=== PATIENT | male | born 1980 | race Caucasian/White ===

== ENCOUNTER 2017-04-25 00:58 | Emergency (ER) | payer OTHER ==
[2017-04-25 03:35] LABS: BASOPHIL % 0.3 % (0-2); PLATELET COUNT 203 x10^3mcL (130-400); RED CELL DISTRIBUTION WIDTH 13.5 % (11.5-14.5)
[2017-04-25 03:45] LABS: CALCIUM 8.3 mg/dL (8.5-10.1); CARBON DIOXIDE 27.3 mmol/L (21-32); CREATININE SERUM 1.5 mg/dL (0.7-1.3); POTASSIUM SERUM 4.2 mmol/L (3.5-5.1)
[2017-04-25 05:34] VITALS: BP 137/94
== END 2017-04-25 05:34 | disposition short-term general hospital (02) ==
LOC: ED 00:58
PROVIDERS: Emergency Medicine
DX: S02.609A Fracture of mandible, unspecified, initial encounter for closed fracture (principal); S02.31XA Fracture of orbital floor, right side, initial encounter for closed fracture; S02.0XXA Fracture of vault of skull, initial encounter for closed fracture; F10.129 Alcohol abuse with intoxication, unspecified; Y04.2XXA Assault by strike against or bumped into by another person, initial encounter; Y93.89 Activity, other specified; Y99.8 Other external cause status; Y92.89 Other specified places as the place of occurrence of the external cause
CPT/HCPCS: 90715; G0480; J3490

== ENCOUNTER 2019-10-25 18:03 | Emergency (ER) | payer OTHER | END 2019-10-25 19:00 | disposition other institution (70) | LOC: ED 18:03 | DX: Z02.89 Encounter for other administrative examinations (principal) ==

== ENCOUNTER 2019-10-25 18:03 | Emergency (ER) | payer OTHER ==
[~2019-10-25] VITALS: Ht 177.8 cm; Wt 111.1 kg
[2019-10-25 18:05] VITALS: Ht 177.8 cm; Wt 111.1 kg
[2019-10-25 19:00] VITALS: BP 128/78
== END 2019-10-25 19:00 | disposition other institution (70) ==
LOC: ED 18:03
DX: H93.11 Tinnitus, right ear (principal); F15.10 Other stimulant abuse, uncomplicated

== ENCOUNTER 2020-04-12 15:07 | Emergency (ER) | payer OTHER ==
[~2020-04-12] VITALS: Ht 180.3 cm; Wt 93.0 kg
[2020-04-12 15:20] VITALS: Ht 180.3 cm; Wt 93.0 kg
[2020-04-13 01:30] VITALS: BP 108/76
== END 2020-04-13 01:30 | disposition home or self-care (01) ==
LOC: ED 15:07
DX: F19.10 Other psychoactive substance abuse, uncomplicated (principal); F10.129 Alcohol abuse with intoxication, unspecified; F15.10 Other stimulant abuse, uncomplicated

== ENCOUNTER 2020-05-11 02:25 | Emergency (ER) | payer OTHER ==
[~2020-05-11] VITALS: Ht 172.7 cm; Wt 90.7 kg
[2020-05-11 02:41] VITALS: Ht 172.7 cm; Wt 90.7 kg
[2020-05-11 06:06] VITALS: BP 124/80
== END 2020-05-11 06:06 | disposition home or self-care (01) ==
LOC: ED 02:25
DX: S39.012A Strain of muscle, fascia and tendon of lower back, initial encounter (principal); W10.8XXA Fall (on) (from) other stairs and steps, initial encounter; Y93.89 Activity, other specified; Y92.89 Other specified places as the place of occurrence of the external cause; Y99.8 Other external cause status
CPT/HCPCS: J1885